=== PATIENT | female | born 1975 | race Two or more races ===

== ENCOUNTER 2025-05-08 15:38 | Emergency (ER) | payer OTHER ==
[~2025-05-08] VITALS: Ht 154.9 cm; Wt 86.2 kg
[2025-05-08] MEDS ORDERED: 0.9 % SODIUM CHLORIDE 1,000 ML IV SCH (17:15)
[2025-05-08] MEDS ORDERED: MORPHINE SULFATE 2 MG/ML CARTRIDGE IV ONE (17:15)
[2025-05-08 17:47] LABS: BASO % 0.3 % (0.1-1.2); EOS # 0.04 (0.04-0.54); EOS % 0.3 % (0.7-7.0); HEMOGLOBIN 15.6 g/dL (11.2-15.7); LYMPH # 1.32 (1.18-3.74); LYMPH % 10.5 % (19.3-53.1); MEAN CORPUSCULAR HEMOGLOBIN 29.2 pg (25.6-32.2); MONO # 0.58 (0.24-0.82); MONO % 4.6 % (4.7-12.5); NEUT % 83.9 % (34.0-71.1); PLATELET COUNT 293 K/uL (163-369); RED BLOOD COUNT 5.34 M/uL (3.93-5.22); RED CELL DISTRIBUTION WIDTH 13.3 % (11.6-14.4)
[2025-05-08 18:04] LABS: ALBUMIN 4.6 gm/dL (3.4-5.0); BILIRUBIN TOTAL 0.29 mg/dL (0.3-1.2); CREATININE SERUM 0.9 mg/dL (0.55-1.02); GFR 66.83; POTASSIUM 3.9 mEq/L (3.5-5.1); TOTAL PROTEIN 8.6 gm/dL (6.4-8.2)
[2025-05-08 18:18] LABS: URINE APPEARANCE Clear; URINE BILIRRUBIN Negative (NEGATIVE); URINE BLOOD Moderate; URINE COLOR Yellow; URINE GLUCOSE Negative (NEGATIVE); URINE KETONE Negative (NEGATIVE); URINE LEUKOCYTE Negative; URINE NITRATE Negative; URINE PROTEIN 30 (NEGATIVE); URINE UROBILINOGEN 0.2 E.U./dl
[2025-05-08 18:22] LABS: URINE BACTERIA 182.3 uL (0.0-1933); URINE EPITHELIAL CELLS 10.5 uL (0.0-38.8); URINE RBC 20.6 uL (0.0-20.8); URINE WBC 6.9 uL (0.0-23.2)
[2025-05-08 18:29] LABS: URINE CAST 0.44 uL (0.0-1.40)
[2025-05-08] MEDS ORDERED: MORPHINE SULFATE 4 MG/ML CARTRIDGE IV ONE (19:15)
== END 2025-05-08 22:46 | disposition home or self-care (01) ==
LOC: ER 15:47
PROVIDERS: Emergency Medicine
DX: R10.9 Unspecified abdominal pain (principal); Z88.6 Allergy status to analgesic agent; N20.0 Calculus of kidney